=== PATIENT | male | born 1960 | race African-American/Black ===

== ENCOUNTER 2016-11-05 21:29 | Inpatient (IN) ==
--- NOTE | 2016-11-05 21:37 | Emergency Department Note ---
Arrival - Arrival Stated Complaint: CVA S/S - History of Present Illness HPI Narrative: Patient presents complaining of new onset left-sided weakness superimposed upon pre-existing weakness from old stroke. Onset was at 0 hrs. The patient was urinating when he began to have left leg weakness and left facial droop. The family called the ambulance. On EMS arrival they noted left leg weakness to standing and facial droop. Additionally patient has deficits in the left arm which are pre-existing from old stroke. Additionally complicating the left arm presentation is a prior rotator cuff injury. The patient denies any headache right now and is dysphasic. Prior medical history is relevant for cancer and old stroke. He had chemo today. Allergies/Adverse Reactions: Allergies Allergy/AdvReac Type Severity Reaction Status Date / Time No Known Allergies Allergy Verified 10/21/16 12:33 Home Medications: Home Medications Medication Instructions Recorded Confirmed Type Amoxicillin Cap/Tab 500 mg PO DIRECTED 10/21/16 11/05/16 History Tiotropium Br/Olodaterol HCl 4 gm IH DAILY 10/21/16 11/05/16 History [Stiolto Respimat Inhal [place]] Prochlorperazine Tab [Compazine 10 mg PO Q4H 11/05/16 11/05/16 History Tab] Review of System - Review of System 12 point system: reviewed and no additional remarkable complaints except as stated Medical,Surgical,& Family Hx - Medical History Neurology: No history of: Seizures HEENT: History of: Dental Problems (NO TEETH) Respiratory: No history of: Respiratory Problems (SOB MASS BILATERAL LUNGS 06/2016. FLU VAC - NO; PNEU VAC- NO.) Musculoskeletal: History of: Musculoskeletal Problems (LEFT SHOULDER PAIN) No history of: Amputation Other: History of: Cancer - Surgical History Abdominal Surgeries: Patient denies: Abdominal Surgery Reproductive Surgeries: Patient denies;: Genitourinary Surgery - Family History Family History: Reports;: Family Cancer (BROTHER SISTER), Family Hypertension ( MOTHER), Family Stroke (MOTHER) - Social History Smoking Status: Current every day smoker Exam Physical Examination: General: Patient is cachectic with no distress noted. The patient does have left facial droop obvious. HEENT: The extraocular muscles are intact. Oropharynx is moist. There is no erythema or exudate. The tympanic membranes are shiny bilaterally. Neck: There is no adenopathy. Full range of motion is noted without pain. The trachea is midline. No JVD is present. Lungs: There is normal excursion of the chest with the lungs sounding clear bilaterally. No subcostal retractions are present. There is no point tenderness present. Heart: The heart has a regular rate and rhythm with no gallops or murmurs. Abdomen: The abdomen is nontender and nondistended with no rebound, guarding, or masses. Bowel sounds are normal. Back: The back demonstrates a normal appearance with no evidence of trauma. Genitourinary: Not examined. Extremities: The extremities demonstrate no clubbing, cyanosis, or edema. The visualized range of motion is normal. They appear atraumatic. Neuro: Cranial nerves II through XII are checked and demonstrate tongue deviation to the left, left facial nerve droop and gaze deficit to the left. The patient's left leg can lift against gravity. The right arm is contracted and difficult to evaluate. His speech is garbled and he demonstrates some expressive aphasia. Vital Signs: Vital Signs Temperature 98.7 F 11/05/16 21:32 Pulse Rate 87 11/05/16 21:32 Respiratory Rate 20 11/05/16 21:37 Blood Pressure 143/84 11/05/16 21:32 O2 Sat by Pulse Oximetry 99 11/05/16 21:32 Course - Reevaluation(s) Reevaluation #1: It is atypical for stroke symptoms to start acutely at 840 and already have such a well defined low-density lesion albeit near the periphery of the right frontal and parietal lobes already present. Time: 23:48 - Consultations Consultation #1: Dr. Lundberg will evaluate and admit the patient. 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 Case discussed with: patient, patient's family Disposition: Still a Patient Condition: Stable Time of Disposition: 23:52 NIH Stroke Score - Stroke Score Initial Assessment Level of Consciousness: Alert Level of Consciousness Questions: Answers One Correctly Level of Consciousness Commands: Obeys Both Correctly Best Gaze: Partial Gaze Palsy Visual Santana: Partial Hemianopia Facial Palsy: Partial Motor - Right Arm: No Drift Motor - Left Arm: No Drift Motor - Right Leg: No Drift Motor - Left Leg: Drift Limb Ataxia: Present in One Limb Sensory (Pin Prick): Normal Best Language: Mild to Moderate Aphasia Dysarthria: Mild to Moderate Extinction / Inattention (Neglect): No Neglect NIH Stroke Score: 9
--- NOTE | 2016-11-05 21:51 | CT Report ---
CT head/brain wo con Indication: Left facial droop. CT BRAIN WITHOUT CONTRAST DLP: 1012 mGy*cm. One or more of the following dose reduction techniques was used: Automated exposure control, adjustment of the mA and/or kV according the patient size, or use of iterative reconstruction techniques. Comparison: None. Date of admission: 11/05/2016. Technique: Axial noncontrast CT images of the brain were obtained. Findings: Chronic encephalomalacia from prior single right frontal and two right parietal infarcts noted. Elsewhere, munoz-white junction appears maintained. No acute hemorrhage, mass or mass effect. Mild generalized atrophy noted. No bone lesions. Visualized sinuses and mastoid air cells are clear. Impression: No acute intracranial pathology. Old infarcts right frontal and parietal lobes as described. PROCEDURE INTERPRETED AT [facility] DEPARTMENT OF RADIOLOGY Final Report Signed by: Pavel Loera M.D.
--- NOTE | 2016-11-05 21:54 | XRay Report ---
XR chest 1V portable Indication: Left facial droop. Ordering physician input "rule out" as history. Chest one view: Comparison 08/27/2016, CT chest 07/08/2016. Heart size and mediastinal contours remain normal. Increasing mass effect of both suprahilar densities are now present, confirmed to be spiculated nodules/masses on the prior CT. Strand-like bilateral infrahilar densities are now present as well. Emphysematous changes are stable. Impression: Increased prominence of bilateral suprahilar nodule/masses. Bilateral infrahilar strand-like opacities are now present, concerning for aspiration. PROCEDURE INTERPRETED AT [facility] DEPARTMENT OF RADIOLOGY Final Report Signed by: Pavel Loera M.D.
[2016-11-05 23:18] LABS: Hematocrit 40.5 VOL% (42.0-52.0); Hemoglobin 14.1 GM/DL (14.0-18.0); Immature Granulocytes % 0.3 %; Immature Granulocytes Absolute 0.01 #; Lymphocytes # 0.6 10*3/uL (1.4-4.0); Lymphocytes % 18.2 % (21.2-54.2); Mean Corpuscular HGB Conc 34.8 GM/DL (32-36); Mean Corpuscular Hemoglobin 32 PG (27-34); Mean Corpuscular Volume 90.8 FL (87-102); Mean Platelet Volume 10.1 FL (9.6-12.0); Monocytes # 0.1 10*3/uL (0.11-0.8); Neutrophils # 2.6 10*3/uL (1.4-7.4); Neutrophils % 78.5 % (38.7-73.9); Platelet Count 182 T/CUMM (130-400); Red Blood Count 4.46 MC/CUMM (3.8-5.5); Red Cell Distribution Width 12.9 % (9.3-17.3); White Blood Count 3.3 T/CUMM (4-12)
[2016-11-05 23:34] LABS: Calcium 8.7 MG/DL (8.5-10.1); Magnesium 2.4 MG/DL (1.8-2.4); Osmolality,Calculated 279.4 MOS/KG (273-304)
[2016-11-05] MEDS ORDERED: MYLANTA/LIDO VISC 2:1 300 ML BOTTLE SWISH/SWAL PRN (23:52)
[2016-11-05] MEDS ORDERED: LOPERAMIDE 2 MG CAPSULE PO PRN ×2 (23:52)
[2016-11-05] MEDS ORDERED: ONDANSETRON 4 MG/2 ML VIAL IV PRN (23:52)
[2016-11-05] MEDS ORDERED: chlorproMAZINE INJ 25 MG in SODIUM CHLORIDE 0.9% 100 ML IV PRN (23:52)
[2016-11-05] MEDS ORDERED: BENZTROPINE 2 MG/2 ML AMP IV PRN (23:52)
[2016-11-05] MEDS ORDERED: LACTULOSE 20 GM/30 ML UDCUP PO PRN (23:52)
[2016-11-05] MEDS ORDERED: guaiFENesin 200 MG/10 ML UDCUP PO PRN (23:52)
[2016-11-05] MEDS ORDERED: diphenhydrAMINE CAP 25 MG CAPSULE PO PRN (23:52)
[2016-11-05] MEDS ORDERED: traMADol 50 MG TABLET PO PRN (23:52)
[2016-11-05] MEDS ORDERED: MYLANTA/LIDO VISC 2:1 300 ML BOTTLE SWISH/SPIT PRN (23:52)
[2016-11-05] MEDS ORDERED: MAGNESIUM HYDROXIDE SUSP 30 ML UDCUP PO PRN (23:52)
[2016-11-05] MEDS ORDERED: ALUMINUM/MAGNES/SIMETH MAX STR 30 ML UDCUP PO PRN (23:52)
[2016-11-05] MEDS ORDERED: TEMAZEPAM 7.5 MG CAPSULE PO PRN (23:52)
[2016-11-05] MEDS ORDERED: ALPRAZolam 0.25 MG TABLET PO PRN (23:52)
[2016-11-05] MEDS ORDERED: chlorproMAZINE INJ 50 MG in SODIUM CHLORIDE 0.9% 100 ML IV PRN (23:52)
[2016-11-05] MEDS ORDERED: ACETAMINOPHEN 325 MG TABLET PO PRN (23:52)
[2016-11-05] MEDS ORDERED: DEXAMETHASONE 4 MG/1 ML VIAL IV STA (23:54)
[2016-11-05] MEDS ORDERED: DEXAMETHASONE 10 MG/1 ML VIAL ONE (23:59)
[2016-11-06 00:02] LABS: Apearance,Urine CLEAR (Clear); Bilirubin,Urine Negative (Negative); Blood, Urine Negative (Negative); Glucose,Urine (UA) Negative (Negative); Hyaline Casts,Urine 2 /LPF (0-3); Ketones,Urine Negative (Negative); Mucus,Urine Occasional /LPF (Occasional); Nitrite,Urine Negative (Negative); Protein,Urine Negative; RBC,Urine <1 /HPF (0-4); Urine Color Straw (Yellow); Urine Urobilinogen < 2.0 EU/DL (0.2-1.0); WBC,Urine 2 /HPF (0-6)
[2016-11-06] MEDS: DEXTROSE 5% NACL 0.9% 1,000 ML IV SCH ×2 (00:08→16:04)
[2016-11-06 00:12] LABS: Magnesium 2.4 MG/DL (1.8-2.4); Uric Acid 5.3 MG/DL (3.5-7.2)
[2016-11-06] MEDS: MORPHINE 2 MG/1 ML SYRINGE IV PRN ×3 (06:10→19:37)
--- NOTE | 2016-11-06 06:34 | EKG Report ---
Stationary ECG Study [facility] ER Test Date: 11/05/2016 11:25:56 PM Pat Name: AUGUST TO Department: Room: 421 Gender: M [employer]er: : 1960 Requested by: Isidro Boston Order Number: [id number] Reading MD: KERRY LEONG Intervals [place] Rate: 82 P: 86 RI: 171 QRS: 81 QRSD: 75 T: 82 QT: 378 QTc: 416 Interpretive Statements SINUS RHYTHM Electronically Signed On 11-06-16 14:28:17 CDT by KERRY LEONG [email or web address]
[2016-11-06] MEDS ORDERED: TUBERCULIN SKIN TEST 0.1 ML SYRINGE INTRADERM ONE (08:33)
--- NOTE | 2016-11-06 09:17 | Oncology History&Physical ---
Assessment and Plan (1) Acute left-sided weakness Status: Acute Assessment and plan: Clinical presentation is consistent with ischemic CVA. Does not appear to be malignant in etiology but will verify the above with MRI of the brain later today. Neurology consultation is placed along with speech therapy occupational therapy and physical therapy. Current Visit: Yes History of Present Illness Chief complaint: Focal weakness History of present illness: Mr. Lyle is a 56 year old male With recently diagnosed non-small cell lung cancer. The patient is felt to have stage IV disease with bilateral lung involvement. He was seen in my office as an initial consultation on November 04. Chemotherapy was discussed and was administered at [facility] outpatient 4 E. on November 05. The patient was discharged in stable condition but did present back to the adult ER several hours later with left-sided weakness. A CT of the head noncontrast showed no acute event but did reveal some old infarcts. The patient is with his son today. No prior stroke history was given on questioning. The patient is a heavy smoker and has consumed alcohol regularly. His last drink was 2 days prior. He denies any history of withdrawal symptoms. Home Medications Medication Instructions Recorded Confirmed Type Amoxicillin Cap/Tab 500 mg PO DIRECTED 10/21/16 11/06/16 History Tiotropium Br/Olodaterol HCl 4 gm IH DAILY 10/21/16 11/06/16 History [Stiolto Respimat Inhal [place]] Prochlorperazine Tab [Compazine 10 mg PO Q4H 11/05/16 11/06/16 History Tab] Acetaminophen with Codeine Q4HR PRN 11/06/16 History [Acetaminophen-Cod #3 Tablet] Allergies Allergy/AdvReac Type Severity Reaction Status Date / Time No Known Allergies Allergy Verified 10/21/16 12:33 Medical,Surgical,& Family Hx - Medical History Neurology: History of: Cerebrovascular Accident No history of: Seizures HEENT: History of: Dental Problems (NO TEETH) Respiratory: History of: Asthma, Lung Cancer No history of: Respiratory Problems (SOB MASS BILATERAL LUNGS 06/2016. FLU VAC - NO; PNEU VAC- NO.) Musculoskeletal: History of: Musculoskeletal Problems (LEFT SHOULDER PAIN) No history of: Amputation Other: History of: Cancer - Surgical History Cardiac Surgeries: Patient Denies: Cardiac Catheterization Neurologic Surgeries: Patient denies: Neurologic Surgery Abdominal Surgeries: Patient denies: Abdominal Surgery Reproductive Surgeries: Patient denies;: Genitourinary Surgery - Family History Family History: Reports;: Family Cancer (BROTHER SISTER), Family Hypertension ( MOTHER), Family Stroke (MOTHER) - Social History Smoking Status: Current every day smoker Frequency of Alcohol Use: Frequently Type of Drug Use: Unknown - Constitutional Constitutional: Present: fatigue, weight loss. Absent: fever(s) - EENT Ears: Absent: decreased hearing Nose, mouth and throat: Absent: dysphagia, epistaxis, vertigo - Cardiovascular Cardiovascular ROS IM: Absent: palpitations - Respiratory Respiratory: Absent: hemoptysis - Gastrointestinal Gastrointestinal: Absent: abdominal pain, change in bowel habits, cramping - Neurological Neurological ROS: Present: as per HPI, abnormal speech, focal weakness, headache (s). Absent: tremor(s) - Psychiatric Psychiatric General: Absent: anxiety, confusion - Hematologic/Lymphatic Hematologic/Lymphatic: Absent: easy bleeding Exam - Constitutional Vitals: Period Temp Pulse Resp BP Sys/Stephenson Pulse Ox Last 24 Hr 98.1 F-98.9 F 82-102 20-24 142-185/84-98 95-99 General appearance: no acute distress, under weight - Head Head Exam: Present: normocephalic. Absent: normal inspection - Eye Eye Exam: Absent: conjunctival injection, periorbital swelling, scleral icterus Pupils: Present: PERRL - ENT ENT exam: Present: normal external ear exam - Neck Neck exam: Present: normal inspection. Absent: lymphadenopathy - Respiratory Respiratory exam: Present: CTAB. Absent: accessory muscle use, chest wall tenderness - Cardiovascular Cardiovascular exam: Present: RRR. Absent: systolic murmur - GI/Abdominal GI/Abdominal exam: Absent: ascites, distended - Neurological Exam Neurological exam: Present: alert, oriented X3, motor sensory deficit (Left- sided weakness 3 out of 5 subjective intensity with both upper and lower extremity involving) - Skin Skin exam: Present: warm, dry Results - Labs CBC & BMP: 11/05/16 23:11 11/05/16 23:11 Quality Measures - Stroke Onset of Symptoms Date: 11/05/16 Onset of Symptoms Time: 20:40 Symptom Onset Unknown: No
[2016-11-06] MEDS ORDERED: ENOXAPARIN 40 MG/0.4 ML SYRINGE SUBCUT SCH (09:30)
[2016-11-06] MEDS ORDERED: ASPIRIN 325 MG TABLET PO SCH (09:30)
--- NOTE | 2016-11-06 09:35 | Case Mgmt Physician Query Form ---
TB Signs and Symptoms Screening ([place]) INSTRUCTIONS: To be completed annually on residents/staff with a significant Tuberculin Skin Test (TST) upon admission/hire or a prior significant TST. To be completed on all staff at hire. Please respond to each listed symptom with an (X) in either the "YES" or "NO" box. Do you currently have any of the following symptoms: YES NO ( x) ( ) A cough If yes, is it: ( ) Productive ( ) Non- productive (x ) ( ) Hemoptysis (spitting up blood) ( x) ( ) Chest pains ( x) ( ) Weight Loss ( ) ( x) Fever ( ) ( x) Night Sweats ( x) ( ) Weakness ( x) ( ) Loss of Appetite ( x) ( ) Difficulty Breathing If you answered YES" to any of the above questions, how long have symptoms been present? Comments: He has lung cancer and acute CVA MTDD
--- NOTE | 2016-11-06 12:29 | Neurology Consult Note ---
History of Present Illness History of present illness: Mr. Lyle is a 56 year old male right-handed -British gentleman with recently diagnosed non-small cell lung cancer. The patient is felt to have stage IV disease with bilateral lung involvement. He had his first chemotherapy done recently. The patient was discharged in stable condition but did present back to the ER several hours later with left-sided weakness. A CT of the head noncontrast showed no acute event but did reveal some old infarcts. Patient reported that left shoulder has been weeks since May because he has a rotator cuff injury. The new symptoms are primarily speech difficulties with slurred speech as well as left lower extremity weakness. No prior stroke history was given on questioning. The patient is a heavy smoker and has consumed alcohol regularly. His last drink was 2 days prior. Home Medications Medication Instructions Recorded Confirmed Type Amoxicillin Cap/Tab 500 mg PO DIRECTED 10/21/16 11/06/16 History Tiotropium Br/Olodaterol HCl 4 gm IH DAILY 10/21/16 11/06/16 History [Stiolto Respimat Inhal [place]] Prochlorperazine Tab [Compazine 10 mg PO Q4H 11/05/16 11/06/16 History Tab] Acetaminophen with Codeine Q4HR PRN 11/06/16 History [Acetaminophen-Cod #3 Tablet] Allergies Allergy/AdvReac Type Severity Reaction Status Date / Time No Known Allergies Allergy Verified 10/21/16 12:33 12 point system: reviewed and no additional remarkable complaints except as stated Medical,Surgical,& Family Hx - Medical History Neurology: History of: Cerebrovascular Accident No history of: Seizures HEENT: History of: Dental Problems (NO TEETH) Respiratory: History of: Asthma, Lung Cancer No history of: Respiratory Problems (SOB MASS BILATERAL LUNGS 06/2016. FLU VAC - NO; PNEU VAC- NO.) Musculoskeletal: History of: Musculoskeletal Problems (LEFT SHOULDER PAIN) No history of: Amputation Other: History of: Cancer - Surgical History Cardiac Surgeries: Patient Denies: Cardiac Catheterization Neurologic Surgeries: Patient denies: Neurologic Surgery Abdominal Surgeries: Patient denies: Abdominal Surgery Reproductive Surgeries: Patient denies;: Genitourinary Surgery - Family History Family History: Reports;: Family Cancer (BROTHER SISTER), Family Hypertension ( MOTHER), Family Stroke (MOTHER) - Social History Smoking Status: Current every day smoker Frequency of Alcohol Use: Frequently Type of Drug Use: Unknown Exam - Constitutional Vitals: Period Temp Pulse Resp BP Sys/Stephenson Pulse Ox Last 24 Hr 98.1 F-98.9 F 77-102 18-24 142-185/84-98 95-99 Exam: GENERAL: Patient is in no acute distress. NECK: Neck is supple. There is no JVD. No carotid bruits present. No thyroid masses. CVS: First and second heart sounds are normal. There is no S3 present. Regular rate and rhythm. RESPIRATORY: Lungs are clear to auscultation without any rales or rhonchi. ABDOMEN: Soft and non-tender. Bowel sounds are present. There is no hepatosplenomegaly. EXT: There is no palpable edema. Peripheral pulses are present. Skin: No rashes Central Nervous system: General: Alert, awake and Oriented x 3 Speech: Fluent but dysarthric Comprehension: Intact and normal Facial expressions: Normal Cranial Nerves: CN1/Olfactory: Normal CN II/ Optic: Normal, Visual Santana unreliable CN III, and : KEVIN & EOMI CN V: Normal & intact CN VII: left central facial weak CNVIII: Normal CN XI/X/XI/XII: Intact and Normal Motor: Bulk and Tone is normal. Strength in the right 5/5 Strength in the left UE 2/5, left lower extremity 2-3/5 Sensory: Decreased for all the modalities of PP, LT and temp sense in the left Reflexes: 1+ and symmetrical Cerebellar function: Normal finger to nose and heel to cedillo testing in the right and could not assess in the left. Toes: Equivocal Gait: Cannot be tested at this time Results - Labs CBC & BMP: 11/05/16 23:11 11/05/16 23:11 Assessment and Plan (1) Acute CVA (cerebrovascular accident) Status: Acute Assessment and plan: Continue aspirin Add Plavix Stop Lovenox Agree with MRI brain Carotid ultrasound Echocardiogram Lipid profile PT and OT consult Thank you for the consult Current Visit: Yes Specialty Discharge - Follow Up or Referrals
--- NOTE | 2016-11-06 14:20 | Ultrasound Report ---
US carotid duplex BI Indication: Stroke. CAROTID ULTRASOUND Comparison: None. Findings: Grayscale, color Doppler and pulsed Doppler interrogation of the carotid and vertebral arteries performed. Severity of stenosis based on flow velocity measurements using NASCET criteria. Distal right ICA diameter: 5.0 mm Distal left ICA diameter: 5.4 mm Peak systolic flow velocities in centimeters per second are as follows: Right: CCA: 89 cm/s Proximal ICA: 58 Distal ICA: No flow demonstrated with color Doppler, power Doppler and pulsed Doppler interrogation ICA/CCA ratio: Indeterminate Left: CCA: 93 cm/s Proximal ICA: 110 Distal ICA: 113 ICA/CCA ratio: 1.2 External carotid arteries: Both are patent with antegrade flow. Vertebral arteries: Both are patent with antegrade flow. Grayscale and color Doppler images: Bulky, coarse and widespread calcified plaque deposition identified. Pulse Doppler waveform interrogation: No waveforms demonstrated in the right ICA. Spectral broadening in the right proximal ICA noted with reversal of flow on color Doppler imaging. Impression: 1. Total occlusion right ICA by ultrasound. 2. No hemodynamically significant stenosis left ICA origin. 3. Significant, diffuse and markedly heterogeneous calcified plaque bilaterally. PROCEDURE INTERPRETED AT [facility] DEPARTMENT OF RADIOLOGY Final Report Signed by: Pavel Loera M.D.
--- NOTE | 2016-11-06 16:15 | Magnetic Resonance Report ---
Exam: MR head/brain w and wo con Date: 11/06/2016 4:00 AM Comparison: CT brain 11/05/2016 Indication: Left-sided weakness and facial droop, history of CVA and lung cancer Technique:[Multiple acquisitions were obtained including sagittal] T1, coronal T1 scans following injection of 13 cc of Demerol, and axial ADC, diffusion, FLAIR, T2, GRE, and T1 scans before and after the injection of contrast. Scans were obtained on a 1.5 Ekaterina magnet. Findings: The ventricles are normal in size with no midline displacement. The pituitary has a normal appearance and cerebral tonsils are normal in their location. There is a 49 mm area of restricted diffusion in the right basal ganglia/insula location. No hemorrhage in this location. There are additional areas of multifocal enhancement in the right frontal and parietal lobes. There is minimal hemosiderin deposition within one of the findings in the right parietal lobe. More extensive diffuse FLAIR/T2 hyperintensities throughout the right basal ganglia and frontal, temporal, and parietal lobes. Underlying atrophy. Minimal mucosal thickening/fluid in the paranasal sinuses. No acute findings in the orbits, temporal bones and venous sinuses. Occlusion of the right ICA. Impression: 49 mm acute ischemic infarction involving the right basal ganglia/insula location. Additional more subacute to chronic infarcts in the right frontal, temporal, and parietal lobes with luxury perfusion. However some areas of enhancement have a more rounded appearance which makes it difficult to exclude possible additional metastatic disease. Short-term follow-up MRI of the brain with contrast may be helpful for further evaluation. Cerebral atrophy, microvascular disease, occlusion of the right ICA, and minimal sinusitis. Findings were discussed with the patient's nurse Madhuri at 4:10 PM on 11/06/2016. Critical test results PROCEDURE INTERPRETED AT [facility] DEPARTMENT OF RADIOLOGY Final Report Signed by: Dr. Emi Story
[2016-11-06] MEDS: DEXTROSE 5% NACL 0.45% 1,000 ML IV SCH (17:28)
[2016-11-06] MEDS: PROMETHAZINE INJ 25 MG in SODIUM CHLORIDE 0.9% 50 ML IV PRN (20:41)
[2016-11-07 03:45] LABS: Basophils % 0.4 % (0.0-0.8); Eosinophils % 0.1 % (0.00-10.9); Hematocrit 46.5 VOL% (42.0-52.0); Hemoglobin 16.2 GM/DL (14.0-18.0); Immature Granulocytes % 0.2 %; Immature Granulocytes Absolute 0.02 #; Lymphocytes # 1.1 10*3/uL (1.4-4.0); Lymphocytes % 12.9 % (21.2-54.2); Mean Corpuscular HGB Conc 34.8 GM/DL (32-36); Mean Corpuscular Hemoglobin 31 PG (27-34); Mean Corpuscular Volume 89.3 FL (87-102); Monocytes # 0.3 10*3/uL (0.11-0.8); Monocytes % 3.9 % (1.7-12.7); Neutrophils # 6.8 10*3/uL (1.4-7.4); Neutrophils % 82.5 % (38.7-73.9); Platelet Count 185 T/CUMM (130-400); Red Blood Count 5.21 MC/CUMM (3.8-5.5); Red Cell Distribution Width 12.7 % (9.3-17.3); White Blood Count 8.2 T/CUMM (4-12)
[2016-11-07] MEDS ORDERED: CLOPIDOGREL 75 MG TABLET PO SCH (09:00)
[2016-11-07] MEDS ORDERED: ACETAMINOPHEN/CODEINE 300-30 MG TABLET PO PRN (10:13)
--- NOTE | 2016-11-07 10:16 | Oncology Progress Note ---
Assessment and Plan (1) Acute left-sided weakness Status: Acute Assessment and plan: Clinical presentation is consistent with ischemic CVA. Does not appear to be malignant in etiology but will verify the above with MRI of the brain later today. Neurology consultation is placed along with speech therapy occupational therapy and physical therapy. Current Visit: Yes Oncology Subjective PN Interval history: MRI reviewed with large right CVA. Total occlusion of right coronary artery is noted. The patient failed his swallowing study. I have discussed the case with GI today we will plan for PEG tube on Wednesday. I will hold his Plavix which has yet to be administered. We are continuing aspirin. Patient's son is at bedside. Echocardiogram is pending. His left carotid appears widely patent. He has virtually no movement of his left upper extremity and does have some movement of the left lower extremity. Discussed and will pursue rehab placement beginning next week as well. Given his stage IV lung cancer and other recent events, it is not my opinion that we should intervene on the right carotid surgically Exam - Constitutional Vitals: Period Temp Pulse Resp BP Sys/Stephenson Pulse Ox Last 24 Hr 97.3 F-99.2 F 76-102 16-20 124-175/79-102 95-97 Results - Labs CBC & BMP: 11/07/16 02:29 11/05/16 23:11 Quality Measures - Stroke Onset of Symptoms Date: 11/05/16 Onset of Symptoms Time: 20:40 Symptom Onset Unknown: No Specialty Discharge - Follow Up or Referrals
[2016-11-07] MEDS: DEXTROSE 5% NACL 0.45% 1,000 ML IV SCH (11:02)
[2016-11-07] MEDS: ASPIRIN EC 81 MG TABLET PO SCH (11:02)
--- NOTE | 2016-11-07 11:10 | Gastrointestinal Consult Note ---
Assessment and Plan (1) Malnutrition Status: Acute Assessment and plan: With his recent significant CVA and left hemiparesis his ability to tolerate p.o. nutrition will be limited. He also has a history of lung cancer and is on right treatment for this. Risks benefits alternatives of PEG tube placement have been discussed with patient and family and they are agreeable we will proceed on Wednesday. Will continue his aspirin but hold Plavix in the interval. Current Visit: Yes (2) Aspiration into airway Status: Acute Assessment and plan: As above. Current Visit: Yes (3) History of lung cancer Status: Acute Assessment and plan: No respiratory distress is noted in this patient should tolerate planned anesthesia for PEG tube without difficulty. Current Visit: Yes History of Present Illness Chief complaint: CVA with malnutrition History of present illness: Mr. Lyle is a 56 year old male History of metastatic lung cancer who suffered a CVA and is now unable to swallow and maintain his hydration. Swallowing study was remarkable for significant risk for aspiration as well. We are now asked to see him for the question of PEG tube placement. Plavix has been ordered but has not yet been instituted. He is on aspirin. The patient is awake can really not contribute much to history and appears to have an expressive aphasia. No prior history of GI illness or surgery is reported by the patient or his family available in the room. Home Medications Medication Instructions Recorded Confirmed Type Amoxicillin Cap/Tab 500 mg PO DIRECTED 10/21/16 11/06/16 History Tiotropium Br/Olodaterol HCl 4 gm IH DAILY 10/21/16 11/06/16 History [Stiolto Respimat Inhal [place]] Prochlorperazine Tab [Compazine 10 mg PO Q4H 11/05/16 11/06/16 History Tab] Acetaminophen with Codeine Q4HR PRN 11/06/16 History [Acetaminophen-Cod #3 Tablet] Allergies Allergy/AdvReac Type Severity Reaction Status Date / Time No Known Allergies Allergy Verified 10/21/16 12:33 Medical,Surgical,& Family Hx - Medical History Neurology: History of: Cerebrovascular Accident No history of: Seizures HEENT: History of: Dental Problems (NO TEETH) Respiratory: History of: Asthma, Lung Cancer No history of: Respiratory Problems (SOB MASS BILATERAL LUNGS 06/2016. FLU VAC - NO; PNEU VAC- NO.) Musculoskeletal: History of: Musculoskeletal Problems (LEFT SHOULDER PAIN) No history of: Amputation Other: History of: Cancer - Surgical History Cardiac Surgeries: Patient Denies: Cardiac Catheterization Neurologic Surgeries: Patient denies: Neurologic Surgery Abdominal Surgeries: Patient denies: Abdominal Surgery Reproductive Surgeries: Patient denies;: Genitourinary Surgery - Family History Family History: Reports;: Family Cancer (BROTHER SISTER), Family Hypertension ( MOTHER), Family Stroke (MOTHER) - Social History Smoking Status: Current every day smoker Frequency of Alcohol Use: Frequently Type of Drug Use: Unknown ROS unobtainable: other (Limited due to his expressive a aphasia) Exam - Constitutional Vitals: Period Temp Pulse Resp BP Sys/Stephenson Pulse Ox Last 24 Hr 97.3 F-99.2 F 76-102 16-20 124-175/79-102 95-97 General appearance: no acute distress, under weight - Head Head exam: Present: normal inspection, normocephalic, atraumatic - Eye Eye exam: Present: EOMI. Absent: conjunctival injection, scleral icterus Pupils: Present: KEVIN. Absent: dilated - ENT ENT exam: Present: normal oropharynx - Neck Neck exam: Absent: lymphadenopathy, thyromegaly - Respiratory Respiratory exam: Present: clear to auscultation bilaterally. Absent: accessory muscle use, rales - Cardiovascular Cardiovascular exam: Present: regular rate and rhythm. Absent: systolic murmur - GI/Abdominal GI/Abdominal exam: Present: normal bowel sounds, soft. Absent: mass, tenderness - Extremities Exam Extremities exam: Absent: edema - Neurological Exam Neurological exam: Present: alert, other (Expressive a aphasia and left hemiparesis) Results - Labs CBC & BMP: 11/07/16 02:29 11/05/16 23:11 Lab Results: I have reviewed the past 24 hour labs Quality Measures - Stroke Onset of Symptoms Date: 11/05/16 Onset of Symptoms Time: 20:40 Symptom Onset Unknown: No Specialty Discharge - Follow Up or Referrals
[2016-11-07] MEDS ORDERED: cloNIDine 0.1 MG/24 HR PATCH TRANSDERM SCH (15:00)
[2016-11-07] MEDS: chlorproMAZINE 25 MG TABLET PO PRN (18:43)
[2016-11-07] MEDS: MORPHINE 2 MG/1 ML SYRINGE IV PRN (19:36)
[2016-11-07] MEDS: PROMETHAZINE INJ 25 MG in SODIUM CHLORIDE 0.9% 50 ML IV PRN (20:45)
[2016-11-08] MEDS: DEXTROSE 5% NACL 0.45% 1,000 ML IV SCH ×3 (06:38→20:29)
[2016-11-08] MEDS: ASPIRIN EC 81 MG TABLET PO SCH (08:40)
--- NOTE | 2016-11-08 10:23 | ECHO Report ---
Andre Lyle Exam Date: 11/07/2016 10:07 Referring Physician: Technologist: Zoila Degroot Age: 56 Ht (in): 73 Wt (lb): 126 Gender: M Exam Location: [facility] Echo Indications: CVA, weakness, Hx. Lung CA BP: 143 / 91 HR: 77 Rhythm: Sinus Technical Quality: Technically difficult study IMPRESSIONS Left ventricular ejection fraction is estimated at 60 %. Diastolic parameters are normal. Tricuspid regurgitation velocities suggest a RVSP of 22 mmHg. MEASUREMENTS (Male / Female) Normal Values 2D ECHO LV Diastolic Diameter PLAX 3.6 cm 4.2 - 5.9 / 3.9 - 5.3 cm LV Systolic Diameter PLAX 2.9 cm LV Fractional Shortening PLAX 20.6 % IVS Diastolic Thickness 0.7 cm 0.6 - 1.0 / 0.6 - 0.9 cm LVPW Diastolic Thickness 0.8 cm 0.6 - 1.0 / 0.6 - 0.9 cm RV Internal Dim ED PLAX 2.0 cm Aortic Root Diameter 2.1 cm LA Systolic Diameter LX 2.1 cm 3.0 - 4.0 / 2.7 - 3.8 cm DOPPLER TR Peak Velocity 235.0 cm/s TR Peak Gradient 22.1 mmHg FINDINGS Left Ventricle Normal left ventricular cavity size. Left ventricular ejection fraction is estimated at 60 %. Diastolic parameters are normal Right Ventricle Normal right ventricular size. Right Atrium Normal right atrial size. Left Atrium Normal left atrial size. Mitral Valve Mild mitral valve sclerosis. Mild mitral valve regurgitation. Aortic Valve Mild aortic valve sclerosis. Tricuspid Valve Morphologically normal tricuspid valve. Mild tricuspid valve regurgitation. Tricuspid regurgitation velocities suggest a RVSP of 22 mmHg. Pulmonic Valve Morphologically normal pulmonic valve. Trace pulmonary valve regurgitation. Pericardium Trivial pericardial effusion. Aorta Normal size aortic root and proximal ascending aorta. Mara Bryant (Electronically Signed) Final Date: 08 November 2016 10:22
--- NOTE | 2016-11-08 11:02 | Oncology Progress Note ---
Assessment and Plan (1) Acute left-sided weakness Status: Acute Assessment and plan: Clinical presentation is consistent with ischemic CVA. Does not appear to be malignant in etiology but will verify the above with MRI of the brain later today. Neurology consultation is placed along with speech therapy occupational therapy and physical therapy. Current Visit: Yes Oncology Subjective PN Interval history: Total occlusion of right ICA and patient was recently diagnosed stage IV lung cancer with bilateral pulmonary involvement. Significant left hemiparesis is noted. Tube feeds were initiated yesterday with good tolerance thus far at 30 mL's per hour. Oral medications are given via NG tube at this time. His Plavix has not been instituted until after placement of PEG tube. He will need long-term placement according to our conversation with his son this morning. Further chemotherapy to be determined Exam - Constitutional Vitals: Period Temp Pulse Resp BP Sys/Stephenson Pulse Ox Last 24 Hr 97.7 F-98.7 F 83-94 15-20 109-171/67-99 94-97 Results - Labs CBC & BMP: 11/07/16 02:29 11/05/16 23:11 Quality Measures - Stroke Onset of Symptoms Date: 11/05/16 Onset of Symptoms Time: 20:40 Symptom Onset Unknown: No Specialty Discharge - Follow Up or Referrals
[2016-11-08] MEDS: MORPHINE 2 MG/1 ML SYRINGE IV PRN ×3 (11:58→20:29)
--- NOTE | 2016-11-08 12:33 | Event Note ---
Chief complaint malnutrition Uneventful evening. NG tube is been placed is getting enteral nutrition. Plans for PEG tube to reaffirm with the patient's family will proceed with PEG in a.m. Review of systems unobtainable from the patient due to CVA On exam vital signs are stable he is awake with left hemiplegia. He does have an expressive aphasia. Sclerae anicteric lids conjunctiva is unremarkable Neck is supple no JVD no thyromegaly Heart regular rate and rhythm no murmur no edema Heart abdomen soft nondistended nontender no mass no hepatosplenomegaly Abdomen soft nondistended nontender no masses Extremities no clubbing cyanosis edema all 4 extremities. Recommendations Proceed with PEG tube in a.m. as discussed. Hold tube feedings at midnight.
[2016-11-08] MEDS: chlorproMAZINE 25 MG TABLET PO PRN (16:29)
[2016-11-09 04:25] LABS: Basophils % 0.4 % (0.0-0.8); Eosinophils # 0.1 10*3/uL (0.0-0.87); Eosinophils % 1.3 % (0.00-10.9); Hematocrit 43.2 VOL% (42.0-52.0); Hemoglobin 14.5 GM/DL (14.0-18.0); Immature Granulocytes % 0.4 %; Immature Granulocytes Absolute 0.02 #; Lymphocytes # 0.9 10*3/uL (1.4-4.0); Lymphocytes % 16.4 % (21.2-54.2); Mean Corpuscular HGB Conc 33.6 GM/DL (32-36); Mean Corpuscular Hemoglobin 31 PG (27-34); Mean Corpuscular Volume 90.8 FL (87-102); Mean Platelet Volume 11.1 FL (9.6-12.0); Monocytes # 0.2 10*3/uL (0.11-0.8); Monocytes % 4.3 % (1.7-12.7); Neutrophils # 4.1 10*3/uL (1.4-7.4); Neutrophils % 77.2 % (38.7-73.9); Platelet Count 142 T/CUMM (130-400); Red Blood Count 4.76 MC/CUMM (3.8-5.5); Red Cell Distribution Width 12.8 % (9.3-17.3); White Blood Count 5.4 T/CUMM (4-12)
[2016-11-09 04:33] LABS: PT Patient Result 10.6 SECS
[2016-11-09 04:52] LABS: Calcium 8.5 MG/DL (8.5-10.1); Magnesium 2.4 MG/DL (1.8-2.4); Osmolality,Calculated 279.4 MOS/KG (273-304); Phosphorous 3.5 MG/DL (2.5-4.9); Potassium 3.5 MMOL/L (3.5-5.1); Prealbumin 20.2 MG/DL (20-40)
[2016-11-09] MEDS ORDERED: ONDANSETRON 4 MG/2 ML VIAL ONE (04:53)
[2016-11-09] MEDS ORDERED: LIDOCAINE 2% 5 ML VIAL ONE (04:53)
[2016-11-09] MEDS ORDERED: PROPOFOL 200 MG/20 ML VIAL IV ONE (04:53)
[2016-11-09] MEDS ORDERED: PHENYLEPHRINE 1 MG/10 ML SYRINGE IV ONE (04:53)
--- NOTE | 2016-11-09 08:34 | Oncology Progress Note ---
Assessment and Plan (1) Acute left-sided weakness Status: Acute Assessment and plan: Clinical presentation is consistent with ischemic CVA. Does not appear to be malignant in etiology but will verify the above with MRI of the brain later today. Neurology consultation is placed along with speech therapy occupational therapy and physical therapy. Current Visit: Yes Oncology Subjective PN Interval history: Patient resting without complaint this morning. He is n.p.o. for an EGD later today. Plavix will be initiated around 2100 tonight. His son was at bedside. Seeking Medicaid approval and longterm placement. Exam - Constitutional Vitals: Period Temp Pulse Resp BP Sys/Stephenson Pulse Ox Last 24 Hr 98.0 F-98.9 F 79-96 15-20 91-119/53-73 94-100 Results - Labs CBC & BMP: 11/09/16 03:42 11/09/16 03:42 Quality Measures - Stroke Onset of Symptoms Date: 11/05/16 Onset of Symptoms Time: 20:40 Symptom Onset Unknown: No Specialty Discharge - Follow Up or Referrals
--- NOTE | 2016-11-09 09:00 | Neurology Progress Note ---
Neurology - PN : Subjective Interval history: Mr. Lyle seems to be doing about the same. MRI of the brain revealed moderate size right basal ganglia infarct. Patient failed swallowing studies and he is scheduled to get PEG tube today. Echo showed ejection fraction of 60% . Cholesterol is 201. Exam (Progress Note) - Constitutional Vitals: Period Temp Pulse Resp BP Sys/Stephenson Pulse Ox Last 24 Hr 98.0 F-98.9 F 79-96 15-20 91-119/53-73 94-100 Exam: GENERAL: Patient is in no acute distress. NECK: Neck is supple. There is no JVD. No carotid bruits present. No thyroid masses. CVS: First and second heart sounds are normal. There is no S3 present. Regular rate and rhythm. RESPIRATORY: Lungs are clear to auscultation without any rales or rhonchi. ABDOMEN: Soft and non-tender. Bowel sounds are present. There is no hepatosplenomegaly. EXT: There is no palpable edema. Peripheral pulses are present. Skin: No rashes Central Nervous system: General: Alert, awake and Oriented x 3 Speech: Fluent but dysarthric Comprehension: Intact and normal Facial expressions: Normal Cranial Nerves: CN1/Olfactory: Normal CN II/ Optic: Normal, Visual Santana unreliable CN III, and : KEVIN & EOMI CN V: Normal & intact CN VII: left central facial weak CNVIII: Normal CN XI/X/XI/XII: Failed swallowing study Motor: Bulk and Tone is normal. Strength in the right 5/5 Strength in the left UE 2/5, left lower extremity 2-3/5 Sensory: Decreased for all the modalities of PP, LT and temp sense in the left Reflexes: 1+ and symmetrical Cerebellar function: Normal finger to nose and heel to cedillo testing in the right and could not assess in the left. Toes: Equivocal Gait: Cannot be tested at this time Results - Labs CBC & BMP: 11/09/16 03:42 11/09/16 03:42 Assessment and Plan (1) Acute CVA (cerebrovascular accident) Status: Acute Assessment and plan: Continue aspirin Plavix is on hold for PEG tube placement. Resume Plavix after the PEG tube placed Add Lipitor Current Visit: Yes Quality Measures - Stroke Onset of Symptoms Date: 11/05/16 Onset of Symptoms Time: 20:40 Symptom Onset Unknown: No Specialty Discharge - Follow Up or Referrals
--- NOTE | 2016-11-09 11:02 | History and Physical Update ---
History and Physical Update - Physical Exam Mental Status: alert and oriented Heart: regular rate and rhythm Lung: clear to auscultation Abdomen: within normal limits Vitals: within normal limits
--- NOTE | 2016-11-09 11:04 | Operative Note ---
Date of procedure: 11/09/16 Pre-op diagnosis: Malnutrition Procedure: EGD with percutaneous endoscopic gastrostomy tube placement. 56-year-old gentleman with CVA high risk for aspiration and subsequent malnutrition now for PEG tube placement. He also has a history of lung cancer. Informed consent was obtained with the patient and his family. He was sedated with MAC anesthesia. Patient was placed in the supine position head of bed elevated 30 the Olympus flexible video upper endoscope was inserted into the oral cavity under direct vision the esophagus was intubated. Findings: Esophagus-normal proximal mid esophageal mucosa distal esophagus normal no significant esophagitis stricture was identified. Stomach-normal insufflation normal mucosa to direct retroflexed views of the body fundus cardia and antrum the stomach. Pylorus-normal Duodenum-normal bulb duodenum to the third portion of duodenum. Scope withdrawn back the stomach and appropriate in the anterior abdominal wall was transilluminated finger protrusion localize. Area was prepped and draped sterile fashion Nestabs 1/2 cc lidocaine. Finder needle inserted stomach endoscopically visualized this was removed. Subsequently a scalpel incision made through the skin and an 8-gauge gauge Angiocath was inserted through this defect into the gastric cavity where was identified. Guidewire was passed grasped with polypectomy and brought out via the mouth. Using standard pull traction technique the 20 [place] Martin Cook Ponsky style PEG tube was pulled in position and secured. Placed our procedure well his discharge recovery in good condition. Postop diagnosis: 1. Successful placement of PEG tube-routine post PEG placement care. Anesthesia: MAC Surgeon / Physician: Andre Cartagena Estimated blood loss: none Specimens: none sent Condition: stable Disposition: post procedure unit Results - Labs CBC & BMP: 11/09/16 03:42 11/09/16 03:42 Discharge Plan - Discharge Medications No Action Tiotropium Br/Olodaterol HCl [Stiolto Respimat Inhal [place]] 4 gm IH DAILY Acetaminophen with Codeine [Acetaminophen-Cod #3 Tablet] 1 tablet Q4HR PRN PRN Reason: Pain Amoxicillin Cap/Tab 500 mg PO DIRECTED Prochlorperazine Tab [Compazine Tab] 10 mg PO Q4H - Follow Up or Referral - Forms/Instructions Instructions: Ischemic Stroke (DC)
--- NOTE | 2016-11-09 11:10 | Anesthesia Post-Op ---
Anesthesia Post OP - Post Ansesthetic Evaluation Patient seen in post op: Yes Resp: within normal limits CV: within normal limits Mental: within normal limits Temp: within normal limits [id number]: within normal limits Nausea and Vomiting: within normal limits Pain: within normal limits
[2016-11-09] MEDS: MORPHINE 2 MG/1 ML SYRINGE IV PRN ×3 (13:16→21:24)
[2016-11-09] MEDS: DEXTROSE 5% NACL 0.45% 1,000 ML IV SCH (15:18)
[2016-11-09] MEDS: ATORVASTATIN 10 MG TABLET PO SCH (21:30)
[2016-11-09] MEDS: CLOPIDOGREL 75 MG TABLET PO SCH (21:30)
[2016-11-10] MEDS: DEXTROSE 5% NACL 0.45% 1,000 ML IV SCH ×2 (05:09→20:57)
--- NOTE | 2016-11-10 09:06 | Gastrointestinal Progress Note ---
<Jayshree Tripp - Last Filed: 11/10/16 09:03> Assessment and Plan (1) Malnutrition Status: Acute Assessment and plan: 11/10-Post PEG placement without complications. Tolerating tube flushes/feedings to begin today. Plan and addendum to follow by Dr Cartagena. Current Visit: Yes Gastroenterology - PN: Subj Interval history: CC: Malnutrition Pt is awake and alert, states he feels well today. He rested well overnight. He is having some mild abdominal discomfort post PEG placement on yesterday. Tube is flushing well at this time. Tube feedings to be initiated today. Abdomen is soft, mild tenderness. ROS: Denies SOB or chest pain Exam (Progress Note) - Constitutional Vitals: Period Temp Pulse Resp BP Sys/Stephenson Pulse Ox Last 24 Hr 97.6 F-99.9 F 73-96 16-20 80-138/52-89 92-100 General appearance: normal weight, no acute distress - Head Head exam: Present: normal inspection, normocephalic - Eye Eye exam: Present: other (lids and conjunctiva unremarkable). Absent: scleral icterus - ENT ENT exam: Present: normal exam, normal oropharynx - Neck Neck exam: Present: normal inspection - Respiratory Respiratory exam: Present: clear to auscultation bilaterally. Absent: rales, rhonchi, wheezes - Cardiovascular Cardiovascular exam: Present: regular rate and rhythm. Absent: diastolic murmur , JVD, systolic murmur - GI/Abdominal GI/Abdominal exam: Present: normal bowel sounds, tenderness, soft. Absent: ascites, distended, mass, organomegaly - Extremities Exam Extremities exam: Present: normal inspection, full ROM - Back Exam Back exam: Present: normal inspection - Neurological Exam Neurological exam: Present: alert, oriented X3 - Psychiatric Psychiatric exam: Present: normal affect, normal mood - Skin Skin exam: Present: normal color, warm, dry Results - Labs CBC & BMP: 11/09/16 03:42 11/09/16 03:42 Lab Results: I have reviewed the past 24 hour labs Specialty Discharge - Follow Up or Referrals <Andre Cartagena - Last Filed: 11/10/16 19:05> Assessment and Plan (1) Malnutrition Status: Acute Current Visit: Yes (2) Aspiration into airway Status: Acute Current Visit: Yes (3) History of lung cancer Status: Acute Current Visit: Yes Exam (Progress Note) - Constitutional Vitals: Period Temp Pulse Resp BP Sys/Stephenson Pulse Ox Last 24 Hr 97.6 F-99.9 F 69-93 16-20 125-138/67-84 92-100 Results - Labs CBC & BMP: 11/09/16 03:42 11/09/16 03:42
--- NOTE | 2016-11-10 09:10 | Oncology Progress Note ---
Assessment and Plan (1) Acute left-sided weakness Status: Acute Assessment and plan: Clinical presentation is consistent with ischemic CVA. Does not appear to be malignant in etiology but will verify the above with MRI of the brain later today. Neurology consultation is placed along with speech therapy occupational therapy and physical therapy. Current Visit: Yes Oncology Subjective PN Interval history: Recently diagnosed stage IV non-small cell lung cancer. Admitted with acute CVA with left hemiparesis. Total occlusion of right internal carotid is noted. Successful PEG tube placement yesterday. Patient is alert and interactive this morning. He reports being hungry and tube feeds will be started later this morning. Oral medications including Plavix were given last night. Neurology recommendations are noted with the addition of Lipitor. Preliminary reports indicate the patient has been accepted to [facility] and plans are for discharge when bed available. I will plan to follow him up in the oncology clinic in 2-3 weeks. Further chemotherapy is to be determined at this time Exam - Constitutional Vitals: Period Temp Pulse Resp BP Sys/Stephenson Pulse Ox Last 24 Hr 97.6 F-99.9 F 73-96 16-20 80-138/52-89 92-100 Results - Labs CBC & BMP: 11/09/16 03:42 11/09/16 03:42 Quality Measures - VTE Contraindication to Pharmacological VTE Prophylaxis: High Risk of Bleeding - Stroke Onset of Symptoms Date: 11/05/16 Onset of Symptoms Time: 20:40 Symptom Onset Unknown: No Specialty Discharge - Follow Up or Referrals
[2016-11-10] MEDS: CLOPIDOGREL 75 MG TABLET PO SCH (13:04)
[2016-11-10] MEDS: ASPIRIN EC 81 MG TABLET PO SCH (13:06)
--- NOTE | 2016-11-10 15:02 | Neurology Progress Note ---
Neurology - PN : Subjective Interval history: Patient seems to be doing a little better. He is status post PEG tube placement. Reported that he did get up and try to walk with the help of physical therapy. Exam (Progress Note) - Constitutional Vitals: Period Temp Pulse Resp BP Sys/Stephenson Pulse Ox Last 24 Hr 97.6 F-99.9 F 73-96 16-20 117-138/65-84 92-99 Exam: GENERAL: Patient is in no acute distress. NECK: Neck is supple. There is no JVD. No carotid bruits present. No thyroid masses. CVS: First and second heart sounds are normal. There is no S3 present. Regular rate and rhythm. RESPIRATORY: Lungs are clear to auscultation without any rales or rhonchi. ABDOMEN: Soft and non-tender. Bowel sounds are present. There is no hepatosplenomegaly. EXT: There is no palpable edema. Peripheral pulses are present. Skin: No rashes Central Nervous system: General: Alert, awake and Oriented x 3 Speech: Fluent but dysarthric Comprehension: Intact and normal Facial expressions: Normal Cranial Nerves: CN1/Olfactory: Normal CN II/ Optic: Normal, Visual Santana unreliable CN III, and : KEVIN & EOMI CN V: Normal & intact CN VII: left central facial weak CNVIII: Normal CN XI/X/XI/XII: Failed swallowing study Motor: Bulk and Tone is normal. Strength in the right 5/5 Strength in the left UE 2/5, left lower extremity 2-3/5 Sensory: Decreased for all the modalities of PP, LT and temp sense in the left Reflexes: 1+ and symmetrical Cerebellar function: Normal finger to nose and heel to cedillo testing in the right and could not assess in the left. Toes: Equivocal Gait: Not tested at this time Results - Labs CBC & BMP: 11/09/16 03:42 11/09/16 03:42 Assessment and Plan (1) Acute CVA (cerebrovascular accident) Status: Acute Assessment and plan: Continue aspirin Continue Plavix and Lipitor at the same Recommend outpatient OT and PT Sign off. Please call as needed Current Visit: Yes Quality Measures - VTE Contraindication to Pharmacological VTE Prophylaxis: High Risk of Bleeding - Stroke Onset of Symptoms Date: 11/05/16 Onset of Symptoms Time: 20:40 Symptom Onset Unknown: No Specialty Discharge - Follow Up or Referrals
[2016-11-10] MEDS: ATORVASTATIN 10 MG TABLET PO SCH (20:51)
[2016-11-10] MEDS: chlorproMAZINE 25 MG TABLET PO PRN (20:51)
--- NOTE | 2016-11-11 08:44 | Discharge Summary ---
Hospital Course - Hospital Course Hospital Course: Patient with recently diagnosed non-small cell lung cancer stage IV with bilateral pulmonary involvement. On the day of admission the patient received outpatient chemotherapy. He presented to the adult ER several hours later with complaints of left-sided weakness. Acute CVA was confirmed with both CT and MRI. He is noted to have complete occlusion of the right internal carotid artery. He was seen in consultation by neurology, gastroenterology, speech therapy physical therapy and occupational therapy. His case was also evaluated by case management with assistance with alf placement to be discharged today. Patient is receiving aspirin Plavix Lipitor and clonidine patch for treatment of hypertension and CVA. I will schedule him to see me approximately 2 weeks in the office. Further chemotherapy is to be determined based upon the short-term outcome of his CVA and other comorbidities. His son has remained at bedside during the majority of his hospitalization and will hopefully accompany him to his clinic visit. He was able to stand and ambulate slightly with physical therapy assistance. He has left leg weakness though is most profound finding his left upper extremity weakness. He overtly failed a swallowing study and a PEG tube has been placed during his hospitalization with tolerance of enteral feedings at this time. Diagnosis - Discharge Diagnosis (1) Acute left-sided weakness Status: Acute Specialty Discharge - Follow Up or Referrals Discharge Plan - Discharge Medications No Action Tiotropium Br/Olodaterol HCl [Stiolto Respimat Inhal Eddy] 4 gm IH DAILY Acetaminophen with Codeine [Acetaminophen-Cod #3 Tablet] 1 tablet Q4HR PRN PRN Reason: Pain Amoxicillin Cap/Tab 500 mg PO DIRECTED Prochlorperazine Tab [Compazine Tab] 10 mg PO Q4H - Follow Up or Referral - Forms/Instructions Instructions: Ischemic Stroke (DC) Exam - Constitutional Vitals: Period Temp Pulse Resp BP Sys/Stephenson Pulse Ox Last 24 Hr 97.0 F-98.3 F 69-77 16-20 122-131/70-84 96-100 Discharge Results Procedures and tests throughout hospitalization: Pending Orders 11/12/16 04:00 Basic Metabolic Panel MOTH Magnesium MOTH Phosphorous MOTH Prealbumin MOTH DS: Provider Date of admission: 11/05/16 23:52 Primary care physician: . No PCP Attending physician on admission: Pavel Ya MD Consults: 11/05/16 23:52 Consult to Physician [CONS] Routine Comment: new onset L sided weakness Consulting Provider: Arnaud Patrick Consulting Provider Notified: Yes When should Consulting Provider be notified: Now Consult to Specialist Group: Neurology When should Consulting Provider be notified: Now Person Notified: SHAHANA Date Notified: 11/06/16 Time Notified: 09:20 Consult Notification Comment: DR PATRICK IS ON BYPASS UNTIL MON 11/06/16 01:40 Consult to Dietitian [CONS] Routine Reason for Dietitian: Dietary Consult 11/06/16 08:28 Consult to Occupational Therapy [CONS] Routine Reason for Occupational Therapy: Evaluate and Treat Start Therapy: Today Consult Comment: Left sided weakness possible cva Consult to Physical Therapy [CONS] Routine Reason for Physical Therapy: Evaluate and Treat Start Therapy: Today Consult Comment: left sided weakness possible cva 11/06/16 12:51 Consult to Physician [CONS] Routine Comment: PEG placement Consulting Provider: Andre Cartagena Consulting Provider Notified: Yes When should Consulting Provider be notified: Now Consult to Specialist Group: Gastroenterology When should Consulting Provider be notified: Now Person Notified: DR CARTAGENA NOTIFIED Date Notified: 11/06/16 Time Notified: 12:59 11/07/16 13:40 Consult to Dietitian [CONS] Routine Reason for Dietitian: TF-Initiate/Manage 11/09/16 11:05 Consult to Dietitian [CONS] Routine Reason for Dietitian: TF-Initiate/Manage Consult Comment: Tube feeding recommendations Discharging clinician: Pavel Ya MD
[2016-11-11] MEDS: ASPIRIN EC 81 MG TABLET PO SCH (08:51)
[2016-11-11] MEDS: CLOPIDOGREL 75 MG TABLET PO SCH (08:51)
[2016-11-11] MEDS: chlorproMAZINE 25 MG TABLET PO PRN (10:57)
[2016-11-11 12:00] VITALS: BP 129/79
== END 2016-11-11 12:36 | DRG 65 ==
LOC: EDUNIT# → EDBD → N.ED 21:29 → N.EDINP 23:52 → N.4E 11-06 00:21
PROVIDERS: ADMIT Specialist; ATTEND Specialist
PROC: EGDWPEG (ICD-10-PCS; 2016-11-09 09:05)